=== PATIENT | male | born 1980 | race American Indian/Alaskan Native ===

== ENCOUNTER 2020-07-12 15:33 | Outpatient (CLI) | payer OTHER | END 2020-07-12 15:43 | disposition home or self-care (01) | LOC: PPH VACUNA 15:33 | DX: Z23 Encounter for immunization (principal) ==

== ENCOUNTER 2021-02-04 10:45 | Outpatient (CLI) | payer OTHER | END 2021-02-04 11:00 | disposition home or self-care (01) | LOC: PPH VACUNA 10:45 | PROVIDERS: ATTEND Emergency Medicine Pediatric Emergency Medicine | DX: Z23 Encounter for immunization (principal) ==